=== PATIENT | female | born 1960 | race Caucasian/White ===

== ENCOUNTER 2018-11-10 08:38 | Outpatient (CLI) | payer OTHER ==
--- NOTE | 2018-11-10 10:00 | ULT ---
GALLBLADDER ULTRASOUND: Clinical indication: Right upper quadrant pain. Evaluate for cholelithiasis. FINDINGS: Mildly complex, 3.8 cm cyst is seen within the liver. There is no acute gallbladder pathology. The co mmon duct is normal measuring 2 mm in diameter. There is no ascites. IMPRESSION: No acute gallbladder pathology. Hepatic cyst is incompletely assessed. Recommend follow-up CT [facility] POS: [facility]
== END 2018-11-10 08:39 | disposition home or self-care (01) ==
LOC: BICULT 08:38
PROVIDERS: ATTEND Family Medicine
DX: R10.11 Right upper quadrant pain (principal); K76.89 Other specified diseases of liver
CPT/HCPCS: 76705

== ENCOUNTER 2018-12-16 07:41 | Outpatient (CLI) | payer OTHER ==
--- NOTE | 2018-12-16 09:43 | BD ---
DEXA BONE MINERAL DENSITOMETRY STUDY: DATE: 12/16/2018. HISTORY: Postmenopausal. FINDINGS: Lumbar Spine: BMD (g/cm2) L1 0.702 T-Score: -2.6 Z-Score: -1.3 L2 0.658 T-Score: -3.4 Z-Score: -1.9 L3 0.692 T-Score: -3.6 Z-Score: -2.0 L4 0.816 T-Score: -2.2 Z-Score: -0.7 L1-L4 0.719 T-Score: -3.0 Z-Score: -1.5 Femoral Neck: 0.603 T-Score: -2.2 Z-Score: -0.9 Total Femur: 0.799 T-Score: -1.2 Z-Score: -0.2 Impression: 1. Marked osteopenia of the lumbar spine indicating an 8-fold increased risk for fracture. 2. Moderate osteopenia of the left femoral neck indicating a 4-fold increased risk for fracture. 3. This patient meets the WHO criteria for osteoporosis. POS: [facility]
== END 2018-12-16 07:42 | disposition home or self-care (01) ==
LOC: BICMAMMO 07:41
PROVIDERS: ATTEND Family Medicine
DX: M85.89 Other specified disorders of bone density and structure, multiple sites (principal); M81.0 Age-related osteoporosis without current pathological fracture
CPT/HCPCS: 77080

== ENCOUNTER 2018-12-23 08:57 | Outpatient (CLI) | payer OTHER ==
[2018-12-23 09:27] LABS: Estimated GFR-MDRD - POC Greater than 90
--- NOTE | 2018-12-23 10:58 | CT ---
PRE AND POSTCONTRAST ENHANCED CT IMAGES ABDOMEN: HISTORY: Hepatic cystic lesion. Evaluate with CT. FINDINGS: Pre- and postcontrast-enhanced CT images of the abdomen obtained. The lung bases are unremarkable. There is a 3.5 cm cyst in the left hepatic lobe. This lesion has simple cystic characterization with no evidence of wall enhancement or nodular changes. No evidence of calcification seen. Additional hypodense lesions compatible with simple cysts seen involving hepatic segment 2 and 3 as w ell as hepatic segment 7. These are all compatible with simple cysts. Cortical cysts also seen in the right kidney. Mild atherosclerotic calcification is seen in the abdominal aorta. Also noted is a small umbilical h ernia. IMPRESSION: Numerous hepatic hypodense lesions which are well circumscribed most compatible with hepatic cysts. POS: [facility]
[2018-12-23] MEDS ORDERED: ISOVUE-370 76%-LOCM 1 ML ONE (12:32)
== END 2018-12-23 08:58 | disposition home or self-care (01) ==
LOC: BICCT 08:57
PROVIDERS: ATTEND Family Medicine
DX: K76.89 Other specified diseases of liver (principal)
CPT/HCPCS: 74170; 82565; Q9966